=== PATIENT | female | born 1990 | race African-American/Black ===

== ENCOUNTER 2017-12-18 05:40 | Emergency (ER) | payer OTHER ==
[~2017-12-18] VITALS: Ht 160 cm; Wt 77.1 kg
[2017-12-18 06:10] VITALS: BP 106/49
== END 2017-12-18 06:34 | disposition still patient (30) ==
LOC: ER 05:40
DX: O60.03 Preterm labor without delivery, third trimester (principal); Z3A.35 35 weeks gestation of pregnancy